=== PATIENT | male | born 1960 | race Caucasian/White ===

== ENCOUNTER 2022-05-27 16:05 | Inpatient (IN) | payer MEDICARE ==
[~2022-05-27] VITALS: Ht 180.3 cm; Wt 125.2 kg
[2022-05-27 20:30] VITALS: BP 136/83
[2022-05-27] MEDS ORDERED: MELATONIN 3 MG TABLET PO PRN (21:15)
[2022-05-27] MEDS ORDERED: ACETAMINOPHEN 325 MG TABLET PO PRN (21:15)
[2022-05-27] MEDS ORDERED: MetFORMIN HCL 500 MG TABLET PO SCH (21:30)
[2022-05-27] MEDS: SENNOSIDES 8.6 MG TABLET PO SCH (22:47)
[2022-05-27] MEDS: ATORVASTATIN CALCIUM 40 MG TABLET PO SCH (22:47)
[2022-05-27] MEDS: DOCUSATE SODIUM 250 MG CAPSULE PO SCH (22:47)
[2022-05-27] MEDS: ETHYL ALCOHOL 62% ANTISEPTIC NASAL SANITIZER 0.6 ML AMPUL NASAL SCH (22:48)
[2022-05-27 23:56] LABS: GLUCOMETER DEV NAME(LOC) 2WR.2B; GLUCOSE,POINT OF CARE 138 MG/DL (70-110)
[2022-05-28] MEDS ORDERED: INFLUENZA VIRUS VACCINE QVS 2022-23 (6MO+)/PF 60 MCG/0.5 ML SYRINGE IM. ONE (00:15)
[2022-05-28] MEDS ORDERED: PNEUMOCOCCAL VACCINE POLYVALENT 0.5 ML VIAL [PPSV23] IM. ONE (00:15)
[2022-05-28 06:56] LABS: GLUCOMETER DEV NAME(LOC) 2WR.2B; GLUCOSE,POINT OF CARE 142 MG/DL (70-110)
[2022-05-28 07:53] LABS: HEMOGLOBIN 14.3 g/dL (13.5-17.5); MEAN CORPUSCULAR HEMOGLOBIN 29.5 pg (26.0-34.0)
[2022-05-28 08:00] LABS: BASOPHILS % (AUTO) 0.6 % (0.0-2.0); HEMATOCRIT 41.7 % (41-53); LYMPHOCYTES # (AUTO) 2.3 K/uL (1.0-4.8); LYMPHOCYTES % (AUTO) 17.3 % (22.0-44.0); MEAN CORPUSCULAR HGB CONC 34.2 G/dL (31.0-37.0); MEAN CORPUSCULAR VOLUME 86 fL (80-100); MONOCYTES # (AUTO) 1.1 K/uL (0.1-1.0); MONOCYTES % (AUTO) 8.5 % (2.0-9.0); NEUTROPHILS # (AUTO) 9.4 K/uL (1.8-7.7); NEUTROPHILS % (AUTO) 71.6 % (40.0-70.0); PLATELET COUNT (AUTO) 292 K/uL (150-450); RED BLOOD CELL COUNT(AUTO) 4.83 MIL/uL (4.50-5.90); RED CELL DISTRIBUTION WIDTH 13.3 % (11.5-14.5)
[2022-05-28 08:05] LABS: ALBUMIN 3.7 g/dL (3.4-5.0); BILIRUBIN,TOTAL 0.6 mg/dL (0.1-1.0); CREATININE 1.3 mg/dL (0.60-1.30); POTASSIUM 3.6 mmol/L (3.5-5.1); TOTAL PROTEIN, SERUM 7.9 g/dL (6.4-8.2)
[2022-05-28] MEDS: ASPIRIN 81 MG CHEWABLE TABLET PO SCH (08:37)
[2022-05-28] MEDS: VALSARTAN 160 MG TABLET PO SCH (08:37)
[2022-05-28] MEDS: DOCUSATE SODIUM 250 MG CAPSULE PO SCH ×2 (08:37→20:01)
[2022-05-28] MEDS: MetFORMIN HCL 500 MG TABLET PO SCH ×2 (08:38→17:52)
[2022-05-28] MEDS: ETHYL ALCOHOL 62% ANTISEPTIC NASAL SANITIZER 0.6 ML AMPUL NASAL SCH ×2 (08:38→20:03)
[2022-05-28] MEDS: AmLODIPine BESYLATE 10 MG TABLET PO SCH (08:39)
[2022-05-28] MEDS: CLOPIDOGREL BISULFATE 75 MG TABLET PO SCH (08:39)
[2022-05-28] MEDS: HYDROCHLOROTHIAZIDE 25 MG TABLET PO SCH (08:45)
[2022-05-28] MEDS ORDERED: ENOXAPARIN SODIUM 40 MG/0.4 ML PF SYRINGE SQ SCH (09:00)
[2022-05-28 09:05] VITALS: BP 143/78
[2022-05-28 16:49] LABS: APPEARANCE,URINE CLEAR (CLEAR); BILIRUBIN,URINE NEGATIVE (NEGATIVE); GLUCOSE, URINE (UA) NEGATIVE (NEGATIVE); KETONES,URINE NEGATIVE (NEGATIVE); LEUKOCYTE ESTERASE ,URINE NEGATIVE (NEGATIVE); NITRATE,URINE NEGATIVE (NEGATIVE); OCCULT BLOOD,URINE TRACE (NEGATIVE); PROTEIN,URINE TRACE mg/dL (NEGATIVE); SPECIFIC GRAVITIY, URINE 1.022 (1.003-1.030); UROBILINOGEN,URINE <=1.0 mg/dL (<=1.0)
[2022-05-28 17:01] LABS: WBC,URINE 0-2 /HPF (0-5)
[2022-05-28 17:03] LABS: BACTERIA,URINE None Seen /HPF (None Seen); URIC ACID CRYSTALS,URINE Few /LPF (None Seen)
[2022-05-28 19:01] LABS: GLUCOMETER DEV NAME(LOC) 2WR.2B; GLUCOSE,POINT OF CARE 173 MG/DL (70-110)
[2022-05-28 19:41] VITALS: BP 136/73
[2022-05-28] MEDS: SENNOSIDES 8.6 MG TABLET PO SCH (20:02)
[2022-05-28] MEDS: ATORVASTATIN CALCIUM 40 MG TABLET PO SCH (20:02)
[2022-05-28] MEDS: ZOLPIDEM TARTRATE 5 MG TABLET PO PRN (20:02)
[2022-05-28] MEDS: HEPARIN SODIUM,PORCINE 5,000 UNITS/ML VIAL SQ SCH (20:02)
[2022-05-29] MEDS ORDERED: DOCUSATE SODIUM 283 MG/5 ML MINI-ENEMA PR PRN (03:00)
[2022-05-29 07:07] LABS: BASOPHILS % (AUTO) 0.8 % (0.0-2.0); HEMATOCRIT 42.4 % (41-53); HEMOGLOBIN 14.2 g/dL (13.5-17.5); LYMPHOCYTES # (AUTO) 2.3 K/uL (1.0-4.8); LYMPHOCYTES % (AUTO) 18.7 % (22.0-44.0); MEAN CORPUSCULAR HEMOGLOBIN 29.1 pg (26.0-34.0); MEAN CORPUSCULAR HGB CONC 33.4 G/dL (31.0-37.0); MEAN CORPUSCULAR VOLUME 87 fL (80-100); MONOCYTES # (AUTO) 0.9 K/uL (0.1-1.0); MONOCYTES % (AUTO) 7.3 % (2.0-9.0); NEUTROPHILS # (AUTO) 8.6 K/uL (1.8-7.7); NEUTROPHILS % (AUTO) 71.2 % (40.0-70.0); PLATELET COUNT (AUTO) 307 K/uL (150-450); RED BLOOD CELL COUNT(AUTO) 4.88 MIL/uL (4.50-5.90); RED CELL DISTRIBUTION WIDTH 13.1 % (11.5-14.5)
[2022-05-29 07:22] LABS: CHOL/HDL RATIO 4.1 (4.2-7.3); CREATININE 1.48 mg/dL (0.60-1.30); POTASSIUM 3.9 mmol/L (3.5-5.1)
[2022-05-29 07:23] LABS: HEMOGLOBIN A1C 7.3 % (3.8-5.6)
[2022-05-29] MEDS: HEPARIN SODIUM,PORCINE 5,000 UNITS/ML VIAL SQ SCH ×2 (08:13→20:26)
[2022-05-29] MEDS: MetFORMIN HCL 500 MG TABLET PO SCH ×2 (08:16→16:34)
[2022-05-29] MEDS: ETHYL ALCOHOL 62% ANTISEPTIC NASAL SANITIZER 0.6 ML AMPUL NASAL SCH ×2 (08:18→20:27)
[2022-05-29] MEDS: VALSARTAN 160 MG TABLET PO SCH (08:20)
[2022-05-29] MEDS: AmLODIPine BESYLATE 10 MG TABLET PO SCH (08:21)
[2022-05-29] MEDS: ASPIRIN 81 MG CHEWABLE TABLET PO SCH (08:22)
[2022-05-29] MEDS: DOCUSATE SODIUM 250 MG CAPSULE PO SCH ×2 (08:22→20:26)
[2022-05-29] MEDS: HYDROCHLOROTHIAZIDE 25 MG TABLET PO SCH (08:23)
[2022-05-29] MEDS: CLOPIDOGREL BISULFATE 75 MG TABLET PO SCH (08:23)
[2022-05-29 08:46] LABS: GLUCOMETER DEV NAME(LOC) 2WR.1C; GLUCOSE,POINT OF CARE 134 MG/DL (70-110)
[2022-05-29 11:53] VITALS: BP 118/71
[2022-05-29 17:11] LABS: APPEARANCE,URINE CLEAR (CLEAR); BILIRUBIN,URINE NEGATIVE (NEGATIVE); GLUCOSE, URINE (UA) NEGATIVE (NEGATIVE); KETONES,URINE NEGATIVE (NEGATIVE); LEUKOCYTE ESTERASE ,URINE NEGATIVE (NEGATIVE); NITRATE,URINE NEGATIVE (NEGATIVE); OCCULT BLOOD,URINE MODERATE (NEGATIVE); PROTEIN,URINE TRACE mg/dL (NEGATIVE); SPECIFIC GRAVITIY, URINE 1.021 (1.003-1.030); UROBILINOGEN,URINE <=1.0 mg/dL (<=1.0)
[2022-05-29 17:15] LABS: CREATININE,URINE RANDOM 185.1 mg/dL (30.0-125.0); PROTEIN,URINE RANDOM 39 mg/dL (0-11.9); SODIUM,URINE RANDOM 36 mmol/l (20-110); UREA NITROGEN,URINE RANDOM 1023 mg/dL (350-1000)
[2022-05-29 17:20] LABS: BACTERIA,URINE Rare /HPF (None Seen); SQUAMOUS EPITHELIAL CELL,UR Few /LPF (None Seen)
[2022-05-29 17:26] LABS: GLUCOMETER DEV NAME(LOC) 2WR.2B; GLUCOSE,POINT OF CARE 112 MG/DL (70-110)
[2022-05-29 20:00] VITALS: BP 130/79
[2022-05-29] MEDS: ZOLPIDEM TARTRATE 5 MG TABLET PO PRN (20:26)
[2022-05-29] MEDS: ATORVASTATIN CALCIUM 40 MG TABLET PO SCH (20:26)
[2022-05-29] MEDS: SENNOSIDES 8.6 MG TABLET PO SCH (20:26)
[2022-05-30 07:02] LABS: GLUCOMETER DEV NAME(LOC) 2WR.2B; GLUCOSE,POINT OF CARE 124 MG/DL (70-110)
[2022-05-30] MEDS: HEPARIN SODIUM,PORCINE 5,000 UNITS/ML VIAL SQ SCH ×2 (08:29→21:29)
[2022-05-30] MEDS: VALSARTAN 160 MG TABLET PO SCH (08:32)
[2022-05-30] MEDS: MetFORMIN HCL 500 MG TABLET PO SCH ×2 (08:33→16:45)
[2022-05-30] MEDS: DOCUSATE SODIUM 250 MG CAPSULE PO SCH ×2 (08:33→21:28)
[2022-05-30] MEDS: ETHYL ALCOHOL 62% ANTISEPTIC NASAL SANITIZER 0.6 ML AMPUL NASAL SCH ×2 (08:34→21:28)
[2022-05-30] MEDS: ASPIRIN 81 MG CHEWABLE TABLET PO SCH (08:35)
[2022-05-30] MEDS: CLOPIDOGREL BISULFATE 75 MG TABLET PO SCH (08:36)
[2022-05-30] MEDS: AmLODIPine BESYLATE 10 MG TABLET PO SCH (08:36)
[2022-05-30] MEDS: HYDROCHLOROTHIAZIDE 25 MG TABLET PO SCH (08:37)
[2022-05-30 08:38] VITALS: BP 132/92
[2022-05-30 17:11] LABS: GLUCOMETER DEV NAME(LOC) 2WR.1C; GLUCOSE,POINT OF CARE 106 MG/DL (70-110)
[2022-05-30 20:22] VITALS: BP 138/77
[2022-05-30] MEDS: SENNOSIDES 8.6 MG TABLET PO SCH (21:28)
[2022-05-30] MEDS: ZOLPIDEM TARTRATE 5 MG TABLET PO PRN (21:29)
[2022-05-30] MEDS: ATORVASTATIN CALCIUM 40 MG TABLET PO SCH (21:30)
[2022-05-31 06:36] LABS: BASOPHILS % (AUTO) 0.8 % (0.0-2.0); EOSINOPHILS % (AUTO) 1.2 % (1.0-6.0); HEMATOCRIT 41.5 % (41-53); HEMOGLOBIN 14.1 g/dL (13.5-17.5); LYMPHOCYTES # (AUTO) 2.4 K/uL (1.0-4.8); LYMPHOCYTES % (AUTO) 17.7 % (22.0-44.0); MEAN CORPUSCULAR HEMOGLOBIN 29.3 pg (26.0-34.0); MEAN CORPUSCULAR VOLUME 86 fL (80-100); MONOCYTES % (AUTO) 7.5 % (2.0-9.0); NEUTROPHILS # (AUTO) 9.8 K/uL (1.8-7.7); NEUTROPHILS % (AUTO) 72.8 % (40.0-70.0); PLATELET COUNT (AUTO) 289 K/uL (150-450); RED BLOOD CELL COUNT(AUTO) 4.82 MIL/uL (4.50-5.90); RED CELL DISTRIBUTION WIDTH 12.8 % (11.5-14.5)
[2022-05-31 06:41] LABS: GLUCOMETER DEV NAME(LOC) 2WR.2B; GLUCOSE,POINT OF CARE 104 MG/DL (70-110)
[2022-05-31 06:49] LABS: CALCIUM, TOTAL 8.9 mg/dL (8.8-10.5); CREATININE 1.35 mg/dL (0.60-1.30); POTASSIUM 3.8 mmol/L (3.5-5.1)
[2022-05-31 07:46] VITALS: BP 135/74
[2022-05-31 07:50] VITALS: BP 135/74
[2022-05-31] MEDS: MetFORMIN HCL 500 MG TABLET PO SCH ×2 (08:35→17:46)
[2022-05-31] MEDS: DOCUSATE SODIUM 250 MG CAPSULE PO SCH ×2 (08:36→21:00)
[2022-05-31] MEDS: ASPIRIN 81 MG CHEWABLE TABLET PO SCH (08:36)
[2022-05-31] MEDS: ETHYL ALCOHOL 62% ANTISEPTIC NASAL SANITIZER 0.6 ML AMPUL NASAL SCH ×2 (08:36→21:08)
[2022-05-31] MEDS: AmLODIPine BESYLATE 10 MG TABLET PO SCH (08:37)
[2022-05-31] MEDS: VALSARTAN 160 MG TABLET PO SCH (08:37)
[2022-05-31] MEDS: CLOPIDOGREL BISULFATE 75 MG TABLET PO SCH (08:38)
[2022-05-31] MEDS: HYDROCHLOROTHIAZIDE 25 MG TABLET PO SCH (08:38)
[2022-05-31] MEDS: HEPARIN SODIUM,PORCINE 5,000 UNITS/ML VIAL SQ SCH ×2 (08:39→21:07)
[2022-05-31 09:44] VITALS: BP 135/74
[2022-05-31 17:06] LABS: GLUCOMETER DEV NAME(LOC) 2WR.2B; GLUCOSE,POINT OF CARE 125 MG/DL (70-110)
[2022-05-31 20:30] VITALS: BP 131/83
[2022-05-31] MEDS: SENNOSIDES 8.6 MG TABLET PO SCH (21:00)
[2022-05-31] MEDS: ATORVASTATIN CALCIUM 40 MG TABLET PO SCH (21:07)
[2022-05-31] MEDS: ZOLPIDEM TARTRATE 5 MG TABLET PO PRN (21:07)
[2022-06-01 07:21] LABS: GLUCOMETER DEV NAME(LOC) 2WR.2B; GLUCOSE,POINT OF CARE 104 MG/DL (70-110)
[2022-06-01] MEDS: DOCUSATE SODIUM 250 MG CAPSULE PO SCH ×3 (09:00→21:00)
[2022-06-01 09:05] VITALS: BP 128/73
[2022-06-01] MEDS: MetFORMIN HCL 500 MG TABLET PO SCH ×2 (09:15→17:50)
[2022-06-01] MEDS: VALSARTAN 160 MG TABLET PO SCH (09:15)
[2022-06-01] MEDS: HYDROCHLOROTHIAZIDE 25 MG TABLET PO SCH (09:16)
[2022-06-01] MEDS: AmLODIPine BESYLATE 10 MG TABLET PO SCH (09:16)
[2022-06-01] MEDS: CLOPIDOGREL BISULFATE 75 MG TABLET PO SCH (09:16)
[2022-06-01] MEDS: ASPIRIN 81 MG CHEWABLE TABLET PO SCH (09:16)
[2022-06-01] MEDS: HEPARIN SODIUM,PORCINE 5,000 UNITS/ML VIAL SQ SCH ×2 (09:17→21:08)
[2022-06-01] MEDS: ETHYL ALCOHOL 62% ANTISEPTIC NASAL SANITIZER 0.6 ML AMPUL NASAL SCH ×2 (09:18→21:20)
[2022-06-01] MEDS ORDERED: DEXTROSE 50%-WATER 25 GM/50 ML SYRINGE IVP PRN (17:45)
[2022-06-01] MEDS: FAMOTIDINE 20 MG TABLET PO SCH (17:50)
[2022-06-01] MEDS: GABAPENTIN 100 MG CAPSULE PO SCH ×2 (17:51→21:10)
[2022-06-01 21:00] VITALS: BP 116/65
[2022-06-01] MEDS: SENNOSIDES 8.6 MG TABLET PO SCH (21:00)
[2022-06-01] MEDS: ATORVASTATIN CALCIUM 40 MG TABLET PO SCH (21:10)
[2022-06-01] MEDS: ZOLPIDEM TARTRATE 5 MG TABLET PO PRN (21:11)
[2022-06-01 23:16] LABS: GLUCOMETER DEV NAME(LOC) 2WR.1C; GLUCOSE,POINT OF CARE 118 MG/DL (70-110)
[2022-06-02] MEDS: FAMOTIDINE 20 MG TABLET PO SCH ×2 (06:16→15:57)
[2022-06-02 07:01] LABS: GLUCOMETER DEV NAME(LOC) 2WR.2B; GLUCOSE,POINT OF CARE 108 MG/DL (70-110)
[2022-06-02] MEDS: HEPARIN SODIUM,PORCINE 5,000 UNITS/ML VIAL SQ SCH ×2 (07:52→20:09)
[2022-06-02] MEDS: ETHYL ALCOHOL 62% ANTISEPTIC NASAL SANITIZER 0.6 ML AMPUL NASAL SCH ×2 (07:55→20:07)
[2022-06-02] MEDS: MetFORMIN HCL 500 MG TABLET PO SCH ×2 (07:56→15:57)
[2022-06-02] MEDS: VALSARTAN 160 MG TABLET PO SCH (07:57)
[2022-06-02] MEDS: DOCUSATE SODIUM 250 MG CAPSULE PO SCH ×2 (07:58→20:08)
[2022-06-02] MEDS: ASPIRIN 81 MG CHEWABLE TABLET PO SCH (07:59)
[2022-06-02] MEDS: GABAPENTIN 100 MG CAPSULE PO SCH ×3 (08:00→20:08)
[2022-06-02] MEDS: AmLODIPine BESYLATE 10 MG TABLET PO SCH (08:00)
[2022-06-02] MEDS: CLOPIDOGREL BISULFATE 75 MG TABLET PO SCH (08:01)
[2022-06-02] MEDS: HYDROCHLOROTHIAZIDE 25 MG TABLET PO SCH (08:02)
[2022-06-02 09:04] VITALS: BP 139/83
[2022-06-02 18:41] LABS: GLUCOMETER DEV NAME(LOC) 2WR.1C; GLUCOSE,POINT OF CARE 107 MG/DL (70-110)
[2022-06-02] MEDS: ATORVASTATIN CALCIUM 40 MG TABLET PO SCH (20:08)
[2022-06-02] MEDS: ZOLPIDEM TARTRATE 5 MG TABLET PO PRN (20:09)
[2022-06-02 21:00] VITALS: BP 137/75
[2022-06-03] MEDS ORDERED: VALS160T2 PO (02:04)
[2022-06-03] MEDS ORDERED: FLUO10CA24 PO (02:04)
[2022-06-03] MEDS ORDERED: AMLO-258 PO (02:04)
[2022-06-03] MEDS ORDERED: CLON0.1T2 PO (02:04)
[2022-06-03] MEDS ORDERED: HYDR25TA2 PO (02:04)
[2022-06-03] MEDS ORDERED: POTA-206 PO (02:04)
[2022-06-03] MEDS ORDERED: SEMA0.25 SQ (02:04)
[2022-06-03] MEDS: PANTOPRAZOLE SODIUM 40 MG DR TABLET PO SCH ×2 (06:12→16:08)
[2022-06-03 07:11] LABS: GLUCOMETER DEV NAME(LOC) 2WR.2B; GLUCOSE,POINT OF CARE 81 MG/DL (70-110)
[2022-06-03 07:42] LABS: CALCIUM, TOTAL 8.4 mg/dL (8.8-10.5); CREATININE 1.68 mg/dL (0.60-1.30); POTASSIUM 3.8 mmol/L (3.5-5.1)
[2022-06-03] MEDS: HEPARIN SODIUM,PORCINE 5,000 UNITS/ML VIAL SQ SCH ×2 (08:19→21:25)
[2022-06-03] MEDS: VALSARTAN 160 MG TABLET PO SCH (08:21)
[2022-06-03] MEDS: MetFORMIN HCL 500 MG TABLET PO SCH ×2 (08:22→16:41)
[2022-06-03] MEDS: HYDROCHLOROTHIAZIDE 25 MG TABLET PO SCH (08:22)
[2022-06-03] MEDS: ASPIRIN 81 MG CHEWABLE TABLET PO SCH (08:23)
[2022-06-03] MEDS: AmLODIPine BESYLATE 10 MG TABLET PO SCH (08:23)
[2022-06-03] MEDS: ETHYL ALCOHOL 62% ANTISEPTIC NASAL SANITIZER 0.6 ML AMPUL NASAL SCH ×2 (08:24→21:26)
[2022-06-03] MEDS: GABAPENTIN 100 MG CAPSULE PO SCH ×3 (08:25→21:25)
[2022-06-03] MEDS: CLOPIDOGREL BISULFATE 75 MG TABLET PO SCH (08:25)
[2022-06-03] MEDS: DOCUSATE SODIUM 250 MG CAPSULE PO SCH ×2 (08:27→21:00)
[2022-06-03 09:05] VITALS: BP 101/65
[2022-06-03 15:30] VITALS: BP 116/74
[2022-06-03 17:01] LABS: GLUCOMETER DEV NAME(LOC) 2WR.2B; GLUCOSE,POINT OF CARE 104 MG/DL (70-110)
[2022-06-03 21:00] VITALS: BP 118/62
[2022-06-03] MEDS: ATORVASTATIN CALCIUM 40 MG TABLET PO SCH (21:25)
[2022-06-03] MEDS: ZOLPIDEM TARTRATE 5 MG TABLET PO PRN (21:26)
[2022-06-04] MEDS: PANTOPRAZOLE SODIUM 40 MG DR TABLET PO SCH ×2 (06:09→16:54)
[2022-06-04 06:46] LABS: GLUCOMETER DEV NAME(LOC) 2WR.2B; GLUCOSE,POINT OF CARE 92 MG/DL (70-110)
[2022-06-04 08:00] VITALS: BP 133/85
[2022-06-04] MEDS: AmLODIPine BESYLATE 10 MG TABLET PO SCH (08:05)
[2022-06-04] MEDS: HYDROCHLOROTHIAZIDE 25 MG TABLET PO SCH (08:05)
[2022-06-04] MEDS: CLOPIDOGREL BISULFATE 75 MG TABLET PO SCH (08:06)
[2022-06-04] MEDS: GABAPENTIN 100 MG CAPSULE PO SCH ×3 (08:06→20:32)
[2022-06-04] MEDS: ETHYL ALCOHOL 62% ANTISEPTIC NASAL SANITIZER 0.6 ML AMPUL NASAL SCH ×2 (08:06→20:31)
[2022-06-04] MEDS: MetFORMIN HCL 500 MG TABLET PO SCH ×2 (08:06→16:53)
[2022-06-04] MEDS: ASPIRIN 81 MG CHEWABLE TABLET PO SCH (08:07)
[2022-06-04] MEDS: VALSARTAN 160 MG TABLET PO SCH (08:07)
[2022-06-04] MEDS: HEPARIN SODIUM,PORCINE 5,000 UNITS/ML VIAL SQ SCH ×2 (08:08→20:31)
[2022-06-04] MEDS: DOCUSATE SODIUM 250 MG CAPSULE PO SCH ×2 (08:40→20:32)
[2022-06-04 17:21] LABS: GLUCOMETER DEV NAME(LOC) 2WR.1C; GLUCOSE,POINT OF CARE 113 MG/DL (70-110)
[2022-06-04 20:01] VITALS: BP 102/65
[2022-06-04] MEDS: ATORVASTATIN CALCIUM 40 MG TABLET PO SCH (20:31)
[2022-06-04] MEDS: ZOLPIDEM TARTRATE 5 MG TABLET PO PRN (20:31)
[2022-06-05] MEDS: PANTOPRAZOLE SODIUM 40 MG DR TABLET PO SCH ×2 (06:26→16:01)
[2022-06-05 06:56] LABS: GLUCOMETER DEV NAME(LOC) 2WR.2B; GLUCOSE,POINT OF CARE 89 MG/DL (70-110)
[2022-06-05 07:46] LABS: CALCIUM, TOTAL 8.5 mg/dL (8.8-10.5); CREATININE 1.65 mg/dL (0.60-1.30); POTASSIUM 3.7 mmol/L (3.5-5.1)
[2022-06-05 08:00] VITALS: BP 125/70
[2022-06-05] MEDS: ASPIRIN 81 MG CHEWABLE TABLET PO SCH (08:10)
[2022-06-05] MEDS: CLOPIDOGREL BISULFATE 75 MG TABLET PO SCH (08:10)
[2022-06-05] MEDS: MetFORMIN HCL 500 MG TABLET PO SCH (08:10)
[2022-06-05] MEDS: HYDROCHLOROTHIAZIDE 25 MG TABLET PO SCH (08:11)
[2022-06-05] MEDS: AmLODIPine BESYLATE 10 MG TABLET PO SCH (08:12)
[2022-06-05] MEDS: GABAPENTIN 100 MG CAPSULE PO SCH ×3 (08:12→20:49)
[2022-06-05] MEDS: ETHYL ALCOHOL 62% ANTISEPTIC NASAL SANITIZER 0.6 ML AMPUL NASAL SCH ×2 (08:12→20:50)
[2022-06-05] MEDS: HEPARIN SODIUM,PORCINE 5,000 UNITS/ML VIAL SQ SCH ×2 (08:12→20:50)
[2022-06-05] MEDS: VALSARTAN 160 MG TABLET PO SCH (08:12)
[2022-06-05] MEDS: DOCUSATE SODIUM 250 MG CAPSULE PO SCH ×2 (08:22→20:50)
[2022-06-05] MEDS ORDERED: ZOLP10TA8 PO (13:44)
[2022-06-05] MEDS ORDERED: HYDR-4061 PO (13:44)
[2022-06-05] MEDS ORDERED: LATA2.5D14 OU (13:44)
[2022-06-05] MEDS ORDERED: HYDR25TA84 PO (13:44)
[2022-06-05] MEDS ORDERED: GLIM2 PO (13:44)
[2022-06-05] MEDS ORDERED: METF-446 PO (13:44)
[2022-06-05 17:47] LABS: GLUCOMETER DEV NAME(LOC) 2WR.2B; GLUCOSE,POINT OF CARE 120 MG/DL (70-110)
[2022-06-05 20:01] VITALS: BP 120/56
[2022-06-05] MEDS: ZOLPIDEM TARTRATE 5 MG TABLET PO PRN (20:49)
[2022-06-05] MEDS: ATORVASTATIN CALCIUM 40 MG TABLET PO SCH (20:49)
[2022-06-06] MEDS: PANTOPRAZOLE SODIUM 40 MG DR TABLET PO SCH ×2 (06:23→15:32)
[2022-06-06 07:01] LABS: GLUCOMETER DEV NAME(LOC) 2WR.1C; GLUCOSE,POINT OF CARE 110 MG/DL (70-110)
[2022-06-06] MEDS: AmLODIPine BESYLATE 10 MG TABLET PO SCH (07:47)
[2022-06-06] MEDS: VALSARTAN 160 MG TABLET PO SCH (07:47)
[2022-06-06] MEDS: ETHYL ALCOHOL 62% ANTISEPTIC NASAL SANITIZER 0.6 ML AMPUL NASAL SCH ×2 (07:47→20:07)
[2022-06-06] MEDS: CLOPIDOGREL BISULFATE 75 MG TABLET PO SCH (07:47)
[2022-06-06] MEDS: GABAPENTIN 100 MG CAPSULE PO SCH ×3 (07:47→20:08)
[2022-06-06] MEDS: ASPIRIN 81 MG CHEWABLE TABLET PO SCH (07:48)
[2022-06-06] MEDS: MULTIVITAMINS WITH MINERALS, THERAPEUTIC TABLET PO SCH (07:48)
[2022-06-06] MEDS: HEPARIN SODIUM,PORCINE 5,000 UNITS/ML VIAL SQ SCH ×2 (07:49→20:09)
[2022-06-06] MEDS: DOCUSATE SODIUM 250 MG CAPSULE PO SCH ×2 (07:51→20:08)
[2022-06-06 08:03] LABS: CALCIUM, TOTAL 8.8 mg/dL (8.8-10.5); CREATININE 1.52 mg/dL (0.60-1.30); MAGNESIUM 2.3 mg/dL (1.80-2.40); PHOSPHORUS 4.3 mg/dL (2.5-4.9); POTASSIUM 3.9 mmol/L (3.5-5.1)
[2022-06-06 09:08] VITALS: BP 134/78
[2022-06-06 17:01] LABS: GLUCOMETER DEV NAME(LOC) 2WR.1C; GLUCOSE,POINT OF CARE 134 MG/DL (70-110)
[2022-06-06] MEDS: ATORVASTATIN CALCIUM 40 MG TABLET PO SCH (20:08)
[2022-06-06] MEDS: ZOLPIDEM TARTRATE 5 MG TABLET PO PRN (20:08)
[2022-06-06 21:00] VITALS: BP 103/61
[2022-06-07] MEDS ORDERED: ATOR40TA28 PO (03:01)
[2022-06-07] MEDS ORDERED: MULT-248 PO (03:01)
[2022-06-07] MEDS ORDERED: GABA-1216 PO (03:01)
[2022-06-07] MEDS ORDERED: CLOP75TA60 PO (03:01)
[2022-06-07] MEDS ORDERED: ASPI-1450 PO (03:01)
[2022-06-07] MEDS ORDERED: PANT-31 PO (03:01)
[2022-06-07] MEDS ORDERED: DOCU-350 PO (03:01)
[2022-06-07] MEDS: PANTOPRAZOLE SODIUM 40 MG DR TABLET PO SCH ×2 (06:22→16:46)
[2022-06-07 06:58] LABS: BASOPHILS % (AUTO) 0.8 % (0.0-2.0); EOSINOPHILS % (AUTO) 2.3 % (1.0-6.0); HEMATOCRIT 41.6 % (41-53); HEMOGLOBIN 13.7 g/dL (13.5-17.5); LYMPHOCYTES # (AUTO) 2.5 K/uL (1.0-4.8); LYMPHOCYTES % (AUTO) 23.1 % (22.0-44.0); MEAN CORPUSCULAR HEMOGLOBIN 28.7 pg (26.0-34.0); MEAN CORPUSCULAR VOLUME 87 fL (80-100); MONOCYTES # (AUTO) 0.6 K/uL (0.1-1.0); MONOCYTES % (AUTO) 5.9 % (2.0-9.0); NEUTROPHILS # (AUTO) 7.4 K/uL (1.8-7.7); NEUTROPHILS % (AUTO) 67.9 % (40.0-70.0); PLATELET COUNT (AUTO) 276 K/uL (150-450); RED BLOOD CELL COUNT(AUTO) 4.79 MIL/uL (4.50-5.90); RED CELL DISTRIBUTION WIDTH 13.2 % (11.5-14.5)
[2022-06-07 07:03] LABS: CALCIUM, TOTAL 8.9 mg/dL (8.8-10.5); CREATININE 1.47 mg/dL (0.60-1.30)
[2022-06-07 07:06] LABS: GLUCOMETER DEV NAME(LOC) 2WR.2B; GLUCOSE,POINT OF CARE 105 MG/DL (70-110)
[2022-06-07] MEDS: ETHYL ALCOHOL 62% ANTISEPTIC NASAL SANITIZER 0.6 ML AMPUL NASAL SCH ×2 (08:07→20:26)
[2022-06-07] MEDS: ASPIRIN 81 MG CHEWABLE TABLET PO SCH (08:08)
[2022-06-07] MEDS: VALSARTAN 160 MG TABLET PO SCH (08:09)
[2022-06-07] MEDS: MULTIVITAMINS WITH MINERALS, THERAPEUTIC TABLET PO SCH (08:10)
[2022-06-07] MEDS: CLOPIDOGREL BISULFATE 75 MG TABLET PO SCH (08:11)
[2022-06-07] MEDS: DOCUSATE SODIUM 250 MG CAPSULE PO SCH ×2 (08:12→20:26)
[2022-06-07] MEDS: GABAPENTIN 100 MG CAPSULE PO SCH ×3 (08:13→20:27)
[2022-06-07] MEDS: AmLODIPine BESYLATE 10 MG TABLET PO SCH (08:17)
[2022-06-07] MEDS: HEPARIN SODIUM,PORCINE 5,000 UNITS/ML VIAL SQ SCH ×2 (08:19→20:27)
[2022-06-07 09:05] VITALS: BP 132/79
[2022-06-07] MEDS: INSULIN LISPRO 100 UNITS/ML SQ PRN (16:58)
[2022-06-07 17:21] LABS: GLUCOMETER DEV NAME(LOC) 2WR.2B; GLUCOSE,POINT OF CARE 155 MG/DL (70-110)
[2022-06-07] MEDS: ZOLPIDEM TARTRATE 5 MG TABLET PO PRN (20:27)
[2022-06-07] MEDS: ATORVASTATIN CALCIUM 40 MG TABLET PO SCH (20:27)
[2022-06-07 21:00] VITALS: BP 105/52
[2022-06-08] MEDS: PANTOPRAZOLE SODIUM 40 MG DR TABLET PO SCH ×2 (06:27→16:22)
[2022-06-08 07:06] LABS: CALCIUM, TOTAL 8.5 mg/dL (8.8-10.5); CREATININE 1.45 mg/dL (0.60-1.30); POTASSIUM 4.3 mmol/L (3.5-5.1)
[2022-06-08 07:07] LABS: GLUCOMETER DEV NAME(LOC) 2WR.1C; GLUCOSE,POINT OF CARE 105 MG/DL (70-110)
[2022-06-08] MEDS: HEPARIN SODIUM,PORCINE 5,000 UNITS/ML VIAL SQ SCH ×2 (07:42→20:16)
[2022-06-08] MEDS: ASPIRIN 81 MG CHEWABLE TABLET PO SCH (07:44)
[2022-06-08] MEDS: ETHYL ALCOHOL 62% ANTISEPTIC NASAL SANITIZER 0.6 ML AMPUL NASAL SCH ×2 (07:48→20:16)
[2022-06-08] MEDS: DOCUSATE SODIUM 250 MG CAPSULE PO SCH ×2 (07:50→20:16)
[2022-06-08] MEDS: MULTIVITAMINS WITH MINERALS, THERAPEUTIC TABLET PO SCH (07:51)
[2022-06-08] MEDS: VALSARTAN 160 MG TABLET PO SCH (07:54)
[2022-06-08] MEDS: CLOPIDOGREL BISULFATE 75 MG TABLET PO SCH (07:55)
[2022-06-08] MEDS: GABAPENTIN 100 MG CAPSULE PO SCH ×3 (07:56→20:16)
[2022-06-08] MEDS: AmLODIPine BESYLATE 5 MG TABLET PO SCH (07:57)
[2022-06-08 10:05] VITALS: BP 129/70
[2022-06-08] MEDS: ATORVASTATIN CALCIUM 40 MG TABLET PO SCH (20:16)
[2022-06-08] MEDS: ZOLPIDEM TARTRATE 10 MG TABLET PO PRN (20:17)
[2022-06-08 21:00] VITALS: BP 133/69
[2022-06-09 05:21] LABS: GLUCOMETER DEV NAME(LOC) 2WR.1C; GLUCOSE,POINT OF CARE 104 MG/DL (70-110)
[2022-06-09] MEDS: PANTOPRAZOLE SODIUM 40 MG DR TABLET PO SCH ×2 (06:08→16:27)
[2022-06-09 07:06] LABS: GLUCOMETER DEV NAME(LOC) 2WR.2B; GLUCOSE,POINT OF CARE 103 MG/DL (70-110)
[2022-06-09] MEDS: ASPIRIN 81 MG CHEWABLE TABLET PO SCH (08:05)
[2022-06-09] MEDS: MULTIVITAMINS WITH MINERALS, THERAPEUTIC TABLET PO SCH (08:05)
[2022-06-09] MEDS: ETHYL ALCOHOL 62% ANTISEPTIC NASAL SANITIZER 0.6 ML AMPUL NASAL SCH ×2 (08:06→20:38)
[2022-06-09] MEDS: DOCUSATE SODIUM 250 MG CAPSULE PO SCH ×2 (08:06→20:37)
[2022-06-09] MEDS: AmLODIPine BESYLATE 5 MG TABLET PO SCH (08:07)
[2022-06-09] MEDS: VALSARTAN 160 MG TABLET PO SCH (08:07)
[2022-06-09] MEDS: GABAPENTIN 100 MG CAPSULE PO SCH ×3 (08:07→20:38)
[2022-06-09] MEDS: HEPARIN SODIUM,PORCINE 5,000 UNITS/ML VIAL SQ SCH ×2 (08:09→20:37)
[2022-06-09] MEDS: CLOPIDOGREL BISULFATE 75 MG TABLET PO SCH (08:26)
[2022-06-09 09:30] VITALS: BP 130/67
[2022-06-09 18:21] LABS: GLUCOMETER DEV NAME(LOC) 2WR.2B; GLUCOSE,POINT OF CARE 123 MG/DL (70-110)
[2022-06-09 20:12] VITALS: BP 116/75
[2022-06-09] MEDS: ATORVASTATIN CALCIUM 40 MG TABLET PO SCH (20:37)
[2022-06-09] MEDS: ZOLPIDEM TARTRATE 10 MG TABLET PO PRN (20:38)
[2022-06-10 06:51] LABS: GLUCOMETER DEV NAME(LOC) 2WR.2B; GLUCOSE,POINT OF CARE 106 MG/DL (70-110)
[2022-06-10] MEDS: PANTOPRAZOLE SODIUM 40 MG DR TABLET PO SCH ×2 (06:55→15:46)
[2022-06-10] MEDS: MULTIVITAMINS WITH MINERALS, THERAPEUTIC TABLET PO SCH (08:03)
[2022-06-10] MEDS: ASPIRIN 81 MG CHEWABLE TABLET PO SCH (08:03)
[2022-06-10] MEDS: AmLODIPine BESYLATE 5 MG TABLET PO SCH (08:03)
[2022-06-10] MEDS: GABAPENTIN 100 MG CAPSULE PO SCH ×3 (08:03→21:24)
[2022-06-10] MEDS: DOCUSATE SODIUM 250 MG CAPSULE PO SCH ×2 (08:03→21:24)
[2022-06-10] MEDS: CLOPIDOGREL BISULFATE 75 MG TABLET PO SCH (08:03)
[2022-06-10] MEDS: VALSARTAN 160 MG TABLET PO SCH (08:03)
[2022-06-10] MEDS: HEPARIN SODIUM,PORCINE 5,000 UNITS/ML VIAL SQ SCH ×2 (08:04→21:27)
[2022-06-10] MEDS: ETHYL ALCOHOL 62% ANTISEPTIC NASAL SANITIZER 0.6 ML AMPUL NASAL SCH ×2 (08:04→21:27)
[2022-06-10 09:30] VITALS: BP 137/77
[2022-06-10 17:21] LABS: GLUCOMETER DEV NAME(LOC) 2WR.1C; GLUCOSE,POINT OF CARE 160 MG/DL (70-110)
[2022-06-10] MEDS: INSULIN LISPRO 100 UNITS/ML SQ PRN (17:30)
[2022-06-10 20:12] VITALS: BP 129/67
[2022-06-10] MEDS ORDERED: TraZODone HCL 100 MG TABLET PO SCH (21:00)
[2022-06-10] MEDS: ATORVASTATIN CALCIUM 40 MG TABLET PO SCH (21:24)
[2022-06-11] MEDS: PANTOPRAZOLE SODIUM 40 MG DR TABLET PO SCH ×2 (06:31→16:03)
[2022-06-11 06:56] LABS: GLUCOMETER DEV NAME(LOC) 2WR.2B; GLUCOSE,POINT OF CARE 109 MG/DL (70-110)
[2022-06-11 08:15] LABS: CALCIUM, TOTAL 8.5 mg/dL (8.8-10.5); CREATININE 1.34 mg/dL (0.60-1.30); MAGNESIUM 2.1 mg/dL (1.80-2.40); PHOSPHORUS 3.9 mg/dL (2.5-4.9); POTASSIUM 4.3 mmol/L (3.5-5.1)
[2022-06-11] MEDS: ETHYL ALCOHOL 62% ANTISEPTIC NASAL SANITIZER 0.6 ML AMPUL NASAL SCH ×2 (09:00→21:52)
[2022-06-11 09:05] VITALS: BP 151/76
[2022-06-11] MEDS: CLOPIDOGREL BISULFATE 75 MG TABLET PO SCH (10:02)
[2022-06-11] MEDS: ASPIRIN 81 MG CHEWABLE TABLET PO SCH (10:03)
[2022-06-11] MEDS: HEPARIN SODIUM,PORCINE 5,000 UNITS/ML VIAL SQ SCH ×2 (10:03→21:52)
[2022-06-11] MEDS: MULTIVITAMINS WITH MINERALS, THERAPEUTIC TABLET PO SCH (10:03)
[2022-06-11] MEDS: VALSARTAN 160 MG TABLET PO SCH (10:03)
[2022-06-11] MEDS: AmLODIPine BESYLATE 5 MG TABLET PO SCH (10:03)
[2022-06-11] MEDS: GABAPENTIN 100 MG CAPSULE PO SCH ×3 (10:03→21:53)
[2022-06-11] MEDS: DOCUSATE SODIUM 250 MG CAPSULE PO SCH ×2 (10:04→21:52)
[2022-06-11 17:57] LABS: GLUCOMETER DEV NAME(LOC) 2WR.2B; GLUCOSE,POINT OF CARE 109 MG/DL (70-110)
[2022-06-11 21:00] VITALS: BP 126/64
[2022-06-11] MEDS: ATORVASTATIN CALCIUM 40 MG TABLET PO SCH (21:53)
[2022-06-11] MEDS: SENNOSIDES 8.6 MG TABLET PO PRN (21:54)
[2022-06-11] MEDS: MELATONIN 3 MG TABLET PO PRN (21:54)
[2022-06-11] MEDS: LACTULOSE 20 GM/30 ML SOLUTION UDCUP PO PRN (21:54)
[2022-06-12] MEDS: PANTOPRAZOLE SODIUM 40 MG DR TABLET PO SCH ×2 (06:32→17:12)
[2022-06-12 07:43] LABS: GLUCOMETER DEV NAME(LOC) 2WR.2B; GLUCOSE,POINT OF CARE 89 MG/DL (70-110)
[2022-06-12] MEDS: ETHYL ALCOHOL 62% ANTISEPTIC NASAL SANITIZER 0.6 ML AMPUL NASAL SCH ×2 (08:34→20:50)
[2022-06-12] MEDS: MULTIVITAMINS WITH MINERALS, THERAPEUTIC TABLET PO SCH (08:34)
[2022-06-12] MEDS: GABAPENTIN 100 MG CAPSULE PO SCH ×3 (08:34→20:50)
[2022-06-12] MEDS: CLOPIDOGREL BISULFATE 75 MG TABLET PO SCH (08:34)
[2022-06-12] MEDS: DOCUSATE SODIUM 250 MG CAPSULE PO SCH ×2 (08:34→20:50)
[2022-06-12] MEDS: VALSARTAN 160 MG TABLET PO SCH (08:34)
[2022-06-12] MEDS: HEPARIN SODIUM,PORCINE 5,000 UNITS/ML VIAL SQ SCH ×2 (08:36→20:49)
[2022-06-12] MEDS: AmLODIPine BESYLATE 5 MG TABLET PO SCH (08:36)
[2022-06-12] MEDS: ASPIRIN 81 MG CHEWABLE TABLET PO SCH (08:36)
[2022-06-12 10:44] VITALS: BP 134/72
[2022-06-12] MEDS: LACTULOSE 20 GM/30 ML SOLUTION UDCUP PO PRN (13:28)
[2022-06-12 17:52] LABS: GLUCOMETER DEV NAME(LOC) 2WR.1C; GLUCOSE,POINT OF CARE 125 MG/DL (70-110)
[2022-06-12 20:00] VITALS: BP 124/65
[2022-06-12] MEDS: SENNOSIDES 8.6 MG TABLET PO PRN (20:49)
[2022-06-12] MEDS: ATORVASTATIN CALCIUM 40 MG TABLET PO SCH (20:50)
[2022-06-12] MEDS: MELATONIN 3 MG TABLET PO PRN (20:50)
[2022-06-13] MEDS: PANTOPRAZOLE SODIUM 40 MG DR TABLET PO SCH ×2 (06:47→16:36)
[2022-06-13 07:13] LABS: GLUCOMETER DEV NAME(LOC) 2WR.2B; GLUCOSE,POINT OF CARE 86 MG/DL (70-110)
[2022-06-13 08:32] VITALS: BP 134/73
[2022-06-13] MEDS: HEPARIN SODIUM,PORCINE 5,000 UNITS/ML VIAL SQ SCH ×2 (08:48→21:22)
[2022-06-13] MEDS: ETHYL ALCOHOL 62% ANTISEPTIC NASAL SANITIZER 0.6 ML AMPUL NASAL SCH ×2 (08:50→21:21)
[2022-06-13] MEDS: ASPIRIN 81 MG CHEWABLE TABLET PO SCH (08:52)
[2022-06-13] MEDS: DOCUSATE SODIUM 250 MG CAPSULE PO SCH ×2 (08:57→21:21)
[2022-06-13] MEDS: GABAPENTIN 100 MG CAPSULE PO SCH ×3 (08:57→21:21)
[2022-06-13] MEDS: VALSARTAN 160 MG TABLET PO SCH (08:57)
[2022-06-13] MEDS: MULTIVITAMINS WITH MINERALS, THERAPEUTIC TABLET PO SCH (08:58)
[2022-06-13] MEDS: AmLODIPine BESYLATE 5 MG TABLET PO SCH (08:59)
[2022-06-13] MEDS: CLOPIDOGREL BISULFATE 75 MG TABLET PO SCH (09:01)
[2022-06-13 16:57] LABS: GLUCOMETER DEV NAME(LOC) 2WR.2B; GLUCOSE,POINT OF CARE 113 MG/DL (70-110)
[2022-06-13 21:00] VITALS: BP 129/56
[2022-06-13] MEDS: ATORVASTATIN CALCIUM 40 MG TABLET PO SCH (21:22)
[2022-06-13] MEDS: TraZODone HCL 50 MG TABLET PO PRN (21:22)
[2022-06-14] MEDS: PANTOPRAZOLE SODIUM 40 MG DR TABLET PO SCH ×2 (06:19→16:33)
[2022-06-14 07:38] LABS: GLUCOMETER DEV NAME(LOC) 2WR.2B; GLUCOSE,POINT OF CARE 94 MG/DL (70-110)
[2022-06-14 08:00] VITALS: BP 134/73
[2022-06-14] MEDS: ASPIRIN 81 MG CHEWABLE TABLET PO SCH (08:33)
[2022-06-14] MEDS: ETHYL ALCOHOL 62% ANTISEPTIC NASAL SANITIZER 0.6 ML AMPUL NASAL SCH ×2 (08:33→21:44)
[2022-06-14] MEDS: GABAPENTIN 100 MG CAPSULE PO SCH ×3 (08:33→21:44)
[2022-06-14] MEDS: CLOPIDOGREL BISULFATE 75 MG TABLET PO SCH (08:33)
[2022-06-14] MEDS: DOCUSATE SODIUM 250 MG CAPSULE PO SCH ×2 (08:33→21:44)
[2022-06-14] MEDS: MULTIVITAMINS WITH MINERALS, THERAPEUTIC TABLET PO SCH (08:33)
[2022-06-14] MEDS: VALSARTAN 160 MG TABLET PO SCH (08:34)
[2022-06-14] MEDS: AmLODIPine BESYLATE 5 MG TABLET PO SCH (08:34)
[2022-06-14] MEDS: HEPARIN SODIUM,PORCINE 5,000 UNITS/ML VIAL SQ SCH ×2 (08:34→21:44)
[2022-06-14 17:11] LABS: GLUCOMETER DEV NAME(LOC) 2WR.2B; GLUCOSE,POINT OF CARE 106 MG/DL (70-110)
[2022-06-14 20:12] VITALS: BP 149/70
[2022-06-14] MEDS: ATORVASTATIN CALCIUM 40 MG TABLET PO SCH (21:44)
[2022-06-14] MEDS: TraZODone HCL 50 MG TABLET PO PRN (21:45)
[2022-06-15] MEDS: PANTOPRAZOLE SODIUM 40 MG DR TABLET PO SCH ×2 (06:42→16:29)
[2022-06-15 06:56] LABS: GLUCOMETER DEV NAME(LOC) 2WR.1C; GLUCOSE,POINT OF CARE 90 MG/DL (70-110)
[2022-06-15 08:00] VITALS: BP 132/67
[2022-06-15] MEDS: HEPARIN SODIUM,PORCINE 5,000 UNITS/ML VIAL SQ SCH ×2 (08:01→20:29)
[2022-06-15] MEDS: ASPIRIN 81 MG CHEWABLE TABLET PO SCH (08:01)
[2022-06-15] MEDS: MULTIVITAMINS WITH MINERALS, THERAPEUTIC TABLET PO SCH (08:01)
[2022-06-15] MEDS: AmLODIPine BESYLATE 5 MG TABLET PO SCH (08:02)
[2022-06-15] MEDS: CLOPIDOGREL BISULFATE 75 MG TABLET PO SCH (08:02)
[2022-06-15] MEDS: ETHYL ALCOHOL 62% ANTISEPTIC NASAL SANITIZER 0.6 ML AMPUL NASAL SCH ×2 (08:02→20:29)
[2022-06-15] MEDS: DOCUSATE SODIUM 250 MG CAPSULE PO SCH ×2 (08:02→20:29)
[2022-06-15] MEDS: GABAPENTIN 100 MG CAPSULE PO SCH ×3 (08:02→20:29)
[2022-06-15] MEDS: VALSARTAN 160 MG TABLET PO SCH (08:02)
[2022-06-15 17:11] LABS: GLUCOMETER DEV NAME(LOC) 2WR.2B; GLUCOSE,POINT OF CARE 125 MG/DL (70-110)
[2022-06-15] MEDS: ATORVASTATIN CALCIUM 40 MG TABLET PO SCH (20:29)
[2022-06-15] MEDS: TraZODone HCL 50 MG TABLET PO PRN (20:29)
[2022-06-15 21:00] VITALS: BP 128/57
[2022-06-16] MEDS: PANTOPRAZOLE SODIUM 40 MG DR TABLET PO SCH ×2 (06:51→16:36)
[2022-06-16 07:17] LABS: GLUCOMETER DEV NAME(LOC) 2WR.2B; GLUCOSE,POINT OF CARE 101 MG/DL (70-110)
[2022-06-16 08:31] VITALS: BP 130/55
[2022-06-16] MEDS: ASPIRIN 81 MG CHEWABLE TABLET PO SCH (09:24)
[2022-06-16] MEDS: ETHYL ALCOHOL 62% ANTISEPTIC NASAL SANITIZER 0.6 ML AMPUL NASAL SCH ×2 (09:24→20:54)
[2022-06-16] MEDS: GABAPENTIN 100 MG CAPSULE PO SCH ×3 (09:25→20:54)
[2022-06-16] MEDS: AmLODIPine BESYLATE 5 MG TABLET PO SCH (09:25)
[2022-06-16] MEDS: VALSARTAN 160 MG TABLET PO SCH (09:25)
[2022-06-16] MEDS: DOCUSATE SODIUM 250 MG CAPSULE PO SCH ×2 (09:25→20:55)
[2022-06-16] MEDS: HEPARIN SODIUM,PORCINE 5,000 UNITS/ML VIAL SQ SCH ×2 (09:26→20:54)
[2022-06-16] MEDS: MULTIVITAMINS WITH MINERALS, THERAPEUTIC TABLET PO SCH (09:26)
[2022-06-16] MEDS: CLOPIDOGREL BISULFATE 75 MG TABLET PO SCH (09:26)
[2022-06-16 17:11] LABS: GLUCOMETER DEV NAME(LOC) 2WR.1C; GLUCOSE,POINT OF CARE 143 MG/DL (70-110)
[2022-06-16] MEDS: INSULIN LISPRO 100 UNITS/ML SQ PRN (17:41)
[2022-06-16 20:10] VITALS: BP 125/69
[2022-06-16] MEDS: TraZODone HCL 50 MG TABLET PO PRN (20:54)
[2022-06-16] MEDS: ATORVASTATIN CALCIUM 40 MG TABLET PO SCH (20:54)
[2022-06-17] MEDS: PANTOPRAZOLE SODIUM 40 MG DR TABLET PO SCH ×2 (06:25→16:54)
[2022-06-17 06:56] LABS: GLUCOMETER DEV NAME(LOC) 2WR.1C; GLUCOSE,POINT OF CARE 100 MG/DL (70-110)
[2022-06-17] MEDS: ETHYL ALCOHOL 62% ANTISEPTIC NASAL SANITIZER 0.6 ML AMPUL NASAL SCH ×2 (08:26→20:34)
[2022-06-17] MEDS: HEPARIN SODIUM,PORCINE 5,000 UNITS/ML VIAL SQ SCH ×2 (08:27→20:35)
[2022-06-17] MEDS: VALSARTAN 160 MG TABLET PO SCH (08:27)
[2022-06-17] MEDS: AmLODIPine BESYLATE 5 MG TABLET PO SCH (08:27)
[2022-06-17] MEDS: MULTIVITAMINS WITH MINERALS, THERAPEUTIC TABLET PO SCH (08:28)
[2022-06-17] MEDS: CLOPIDOGREL BISULFATE 75 MG TABLET PO SCH (08:28)
[2022-06-17] MEDS: ASPIRIN 81 MG CHEWABLE TABLET PO SCH (08:28)
[2022-06-17] MEDS: GABAPENTIN 100 MG CAPSULE PO SCH ×3 (08:28→20:34)
[2022-06-17] MEDS: DOCUSATE SODIUM 250 MG CAPSULE PO SCH ×2 (08:28→20:35)
[2022-06-17 08:43] VITALS: BP 126/73
[2022-06-17 09:05] VITALS: BP 126/73
[2022-06-17 17:25] LABS: GLUCOMETER DEV NAME(LOC) 2WR.2B; GLUCOSE,POINT OF CARE 121 MG/DL (70-110)
[2022-06-17 20:30] VITALS: BP 139/64
[2022-06-17] MEDS: ATORVASTATIN CALCIUM 40 MG TABLET PO SCH (20:34)
[2022-06-17] MEDS: LACTULOSE 20 GM/30 ML SOLUTION UDCUP PO PRN (20:35)
[2022-06-17] MEDS: TraZODone HCL 50 MG TABLET PO PRN (21:58)
[2022-06-18] MEDS: PANTOPRAZOLE SODIUM 40 MG DR TABLET PO SCH ×2 (06:36→17:06)
[2022-06-18 07:16] LABS: GLUCOMETER DEV NAME(LOC) 2WR.2B; GLUCOSE,POINT OF CARE 100 MG/DL (70-110)
[2022-06-18 08:55] VITALS: BP 129/69
[2022-06-18] MEDS: CLOPIDOGREL BISULFATE 75 MG TABLET PO SCH (09:05)
[2022-06-18] MEDS: GABAPENTIN 100 MG CAPSULE PO SCH ×3 (09:05→21:02)
[2022-06-18] MEDS: ETHYL ALCOHOL 62% ANTISEPTIC NASAL SANITIZER 0.6 ML AMPUL NASAL SCH ×2 (09:05→21:03)
[2022-06-18] MEDS: DOCUSATE SODIUM 250 MG CAPSULE PO SCH ×2 (09:05→21:03)
[2022-06-18] MEDS: ASPIRIN 81 MG CHEWABLE TABLET PO SCH (09:06)
[2022-06-18] MEDS: MULTIVITAMINS WITH MINERALS, THERAPEUTIC TABLET PO SCH (09:06)
[2022-06-18] MEDS: HEPARIN SODIUM,PORCINE 5,000 UNITS/ML VIAL SQ SCH ×2 (09:06→21:00)
[2022-06-18] MEDS: AmLODIPine BESYLATE 5 MG TABLET PO SCH (09:06)
[2022-06-18] MEDS: VALSARTAN 160 MG TABLET PO SCH (09:06)
[2022-06-18 10:00] VITALS: BP 129/69
[2022-06-18 17:41] LABS: GLUCOMETER DEV NAME(LOC) 2WR.2B; GLUCOSE,POINT OF CARE 122 MG/DL (70-110)
[2022-06-18 20:05] VITALS: BP 123/69
[2022-06-18] MEDS: TraZODone HCL 50 MG TABLET PO PRN (21:02)
[2022-06-18] MEDS: ATORVASTATIN CALCIUM 40 MG TABLET PO SCH (21:03)
[2022-06-19] MEDS: PANTOPRAZOLE SODIUM 40 MG DR TABLET PO SCH ×2 (06:27→16:06)
[2022-06-19 06:46] LABS: GLUCOMETER DEV NAME(LOC) 2WR.2B; GLUCOSE,POINT OF CARE 94 MG/DL (70-110)
[2022-06-19 08:02] VITALS: BP 128/82
[2022-06-19] MEDS: ETHYL ALCOHOL 62% ANTISEPTIC NASAL SANITIZER 0.6 ML AMPUL NASAL SCH ×2 (08:29→21:09)
[2022-06-19] MEDS: HEPARIN SODIUM,PORCINE 5,000 UNITS/ML VIAL SQ SCH ×2 (08:30→21:09)
[2022-06-19] MEDS: DOCUSATE SODIUM 250 MG CAPSULE PO SCH ×2 (08:30→21:08)
[2022-06-19] MEDS: ASPIRIN 81 MG CHEWABLE TABLET PO SCH (08:30)
[2022-06-19] MEDS: CLOPIDOGREL BISULFATE 75 MG TABLET PO SCH (08:30)
[2022-06-19] MEDS: AmLODIPine BESYLATE 5 MG TABLET PO SCH (08:30)
[2022-06-19] MEDS: MULTIVITAMINS WITH MINERALS, THERAPEUTIC TABLET PO SCH (08:31)
[2022-06-19] MEDS: VALSARTAN 160 MG TABLET PO SCH (08:31)
[2022-06-19] MEDS: GABAPENTIN 100 MG CAPSULE PO SCH ×3 (08:31→21:08)
[2022-06-19 20:05] VITALS: BP 142/83
[2022-06-19] MEDS: TraZODone HCL 50 MG TABLET PO PRN (21:08)
[2022-06-19] MEDS: ATORVASTATIN CALCIUM 40 MG TABLET PO SCH (21:08)
[2022-06-19 21:57] LABS: GLUCOMETER DEV NAME(LOC) 2WR.1C; GLUCOSE,POINT OF CARE 93 MG/DL (70-110)
[2022-06-20] MEDS: PANTOPRAZOLE SODIUM 40 MG DR TABLET PO SCH ×2 (06:32→16:19)
[2022-06-20 07:42] LABS: GLUCOMETER DEV NAME(LOC) 2WR.2B; GLUCOSE,POINT OF CARE 115 MG/DL (70-110)
[2022-06-20] MEDS: DOCUSATE SODIUM 250 MG CAPSULE PO SCH ×2 (08:38→20:52)
[2022-06-20] MEDS: MULTIVITAMINS WITH MINERALS, THERAPEUTIC TABLET PO SCH (08:38)
[2022-06-20] MEDS: VALSARTAN 160 MG TABLET PO SCH (08:38)
[2022-06-20] MEDS: ASPIRIN 81 MG CHEWABLE TABLET PO SCH (08:38)
[2022-06-20] MEDS: CLOPIDOGREL BISULFATE 75 MG TABLET PO SCH (08:38)
[2022-06-20] MEDS: GABAPENTIN 100 MG CAPSULE PO SCH ×3 (08:38→20:52)
[2022-06-20] MEDS: ETHYL ALCOHOL 62% ANTISEPTIC NASAL SANITIZER 0.6 ML AMPUL NASAL SCH ×2 (08:38→20:52)
[2022-06-20] MEDS: AmLODIPine BESYLATE 5 MG TABLET PO SCH (08:38)
[2022-06-20] MEDS: HEPARIN SODIUM,PORCINE 5,000 UNITS/ML VIAL SQ SCH ×2 (08:39→20:53)
[2022-06-20] MEDS: LACTULOSE 20 GM/30 ML SOLUTION UDCUP PO PRN (09:31)
[2022-06-20 10:36] VITALS: BP 129/58
[2022-06-20 18:08] LABS: GLUCOMETER DEV NAME(LOC) 2WR.1C; GLUCOSE,POINT OF CARE 124 MG/DL (70-110)
[2022-06-20 20:45] VITALS: BP 136/62
[2022-06-20] MEDS: ATORVASTATIN CALCIUM 40 MG TABLET PO SCH (20:52)
[2022-06-20] MEDS: TraZODone HCL 50 MG TABLET PO PRN (20:53)
[2022-06-20] MEDS: SENNOSIDES 8.6 MG TABLET PO PRN (20:54)
[2022-06-21] MEDS: PANTOPRAZOLE SODIUM 40 MG DR TABLET PO SCH ×2 (06:21→16:36)
[2022-06-21] MEDS ORDERED: TRAZ-252 PO (07:14)
[2022-06-21 07:18] LABS: GLUCOMETER DEV NAME(LOC) 2WR.2B; GLUCOSE,POINT OF CARE 94 MG/DL (70-110)
[2022-06-21 08:05] VITALS: BP 135/67
[2022-06-21] MEDS: ETHYL ALCOHOL 62% ANTISEPTIC NASAL SANITIZER 0.6 ML AMPUL NASAL SCH ×2 (08:34→20:23)
[2022-06-21] MEDS: GABAPENTIN 100 MG CAPSULE PO SCH ×3 (08:35→20:24)
[2022-06-21] MEDS: HEPARIN SODIUM,PORCINE 5,000 UNITS/ML VIAL SQ SCH ×2 (08:35→20:24)
[2022-06-21] MEDS: CLOPIDOGREL BISULFATE 75 MG TABLET PO SCH (08:35)
[2022-06-21] MEDS: ASPIRIN 81 MG CHEWABLE TABLET PO SCH (08:35)
[2022-06-21] MEDS: VALSARTAN 160 MG TABLET PO SCH (08:35)
[2022-06-21] MEDS: MULTIVITAMINS WITH MINERALS, THERAPEUTIC TABLET PO SCH (08:35)
[2022-06-21] MEDS: AmLODIPine BESYLATE 5 MG TABLET PO SCH (08:35)
[2022-06-21] MEDS: DOCUSATE SODIUM 250 MG CAPSULE PO SCH ×2 (08:35→20:23)
[2022-06-21 17:27] LABS: GLUCOMETER DEV NAME(LOC) 2WR.2B; GLUCOSE,POINT OF CARE 106 MG/DL (70-110)
[2022-06-21] MEDS: ATORVASTATIN CALCIUM 40 MG TABLET PO SCH (20:23)
[2022-06-21] MEDS: TraZODone HCL 50 MG TABLET PO PRN (20:25)
[2022-06-21 20:47] VITALS: BP 130/74
[2022-06-22] MEDS: PANTOPRAZOLE SODIUM 40 MG DR TABLET PO SCH ×2 (06:22→16:04)
[2022-06-22 06:58] LABS: GLUCOMETER DEV NAME(LOC) 2WR.1C; GLUCOSE,POINT OF CARE 97 MG/DL (70-110)
[2022-06-22 08:15] VITALS: BP 128/72
[2022-06-22] MEDS: AmLODIPine BESYLATE 5 MG TABLET PO SCH (08:38)
[2022-06-22] MEDS: CLOPIDOGREL BISULFATE 75 MG TABLET PO SCH (08:38)
[2022-06-22] MEDS: MULTIVITAMINS WITH MINERALS, THERAPEUTIC TABLET PO SCH (08:38)
[2022-06-22] MEDS: ETHYL ALCOHOL 62% ANTISEPTIC NASAL SANITIZER 0.6 ML AMPUL NASAL SCH ×2 (08:38→21:47)
[2022-06-22] MEDS: DOCUSATE SODIUM 250 MG CAPSULE PO SCH ×2 (08:38→21:47)
[2022-06-22] MEDS: VALSARTAN 160 MG TABLET PO SCH (08:39)
[2022-06-22] MEDS: GABAPENTIN 100 MG CAPSULE PO SCH ×3 (08:39→21:52)
[2022-06-22] MEDS: HEPARIN SODIUM,PORCINE 5,000 UNITS/ML VIAL SQ SCH ×2 (08:39→21:47)
[2022-06-22] MEDS: ASPIRIN 81 MG CHEWABLE TABLET PO SCH (08:40)
[2022-06-22] MEDS ORDERED: VALS160T2 PO (10:59)
[2022-06-22] MEDS ORDERED: ASPI81 PO (10:59)
[2022-06-22] MEDS ORDERED: PANT-31 PO (10:59)
[2022-06-22] MEDS ORDERED: MULT-1239 PO (10:59)
[2022-06-22] MEDS ORDERED: AMLO-257 PO (10:59)
[2022-06-22] MEDS ORDERED: ATOR40TA71 PO (10:59)
[2022-06-22] MEDS ORDERED: DOCU-350 PO (10:59)
[2022-06-22] MEDS ORDERED: CLOP75TA60 PO (10:59)
[2022-06-22] MEDS ORDERED: TRAZ-252 PO (10:59)
[2022-06-22] MEDS ORDERED: GABA-1216 PO (10:59)
[2022-06-22 18:07] LABS: GLUCOMETER DEV NAME(LOC) 2WR.1C; GLUCOSE,POINT OF CARE 107 MG/DL (70-110)
[2022-06-22 20:12] VITALS: BP 142/73
[2022-06-22] MEDS: ATORVASTATIN CALCIUM 40 MG TABLET PO SCH (21:47)
[2022-06-22] MEDS: TraZODone HCL 50 MG TABLET PO PRN (21:48)
[2022-06-22] MEDS: SENNOSIDES 8.6 MG TABLET PO PRN (21:48)
[2022-06-23 05:18] LABS: GLUCOMETER DEV NAME(LOC) 2WR.1C; GLUCOSE,POINT OF CARE 121 MG/DL (70-110)
[2022-06-23] MEDS: PANTOPRAZOLE SODIUM 40 MG DR TABLET PO SCH (06:55)
[2022-06-23 08:05] VITALS: BP 138/67
[2022-06-23] MEDS: ETHYL ALCOHOL 62% ANTISEPTIC NASAL SANITIZER 0.6 ML AMPUL NASAL SCH (08:34)
[2022-06-23] MEDS: VALSARTAN 160 MG TABLET PO SCH (08:34)
[2022-06-23] MEDS: ASPIRIN 81 MG CHEWABLE TABLET PO SCH (08:34)
[2022-06-23] MEDS: DOCUSATE SODIUM 250 MG CAPSULE PO SCH (08:34)
[2022-06-23] MEDS: MULTIVITAMINS WITH MINERALS, THERAPEUTIC TABLET PO SCH (08:35)
[2022-06-23] MEDS: CLOPIDOGREL BISULFATE 75 MG TABLET PO SCH (08:35)
[2022-06-23] MEDS: GABAPENTIN 100 MG CAPSULE PO SCH (08:35)
[2022-06-23] MEDS: AmLODIPine BESYLATE 5 MG TABLET PO SCH (08:35)
[2022-06-23] MEDS: HEPARIN SODIUM,PORCINE 5,000 UNITS/ML VIAL SQ SCH (08:36)
[2022-06-23 12:58] LABS: GLUCOMETER DEV NAME(LOC) 2WR.1C; GLUCOSE,POINT OF CARE 92 MG/DL (70-110)
== END 2022-06-23 12:05 | disposition home health service (06) | DRG 65 ==
LOC: 2WR 20:22
PROVIDERS: ADMIT Physical Medicine & Rehabilitation; ATTEND Physical Medicine & Rehabilitation
DX: I63.211 Cerebral infarction due to unspecified occlusion or stenosis of right vertebral artery (principal); E44.0 Moderate protein-calorie malnutrition; N17.9 Acute kidney failure, unspecified; I69.354 Hemiplegia and hemiparesis following cerebral infarction affecting left non-dominant side; D72.829 Elevated white blood cell count, unspecified; E11.22 Type 2 diabetes mellitus with diabetic chronic kidney disease; E11.40 Type 2 diabetes mellitus with diabetic neuropathy, unspecified; E11.51 Type 2 diabetes mellitus with diabetic peripheral angiopathy without gangrene; E78.00 Pure hypercholesterolemia, unspecified; F32.A Depression, unspecified; G47.00 Insomnia, unspecified; F41.9 Anxiety disorder, unspecified; K59.00 Constipation, unspecified; M19.90 Unspecified osteoarthritis, unspecified site; E66.01 Morbid (severe) obesity due to excess calories; R41.89 Other symptoms and signs involving cognitive functions and awareness; R47.1 Dysarthria and anarthria; R13.10 Dysphagia, unspecified; R11.0 Nausea; R31.29 Other microscopic hematuria; R31.9 Hematuria, unspecified; N18.30 Chronic kidney disease, stage 3 unspecified; Z89.429 Acquired absence of other toe(s), unspecified side; Z79.899 Other long term (current) drug therapy; Z79.4 Long term (current) use of insulin; Z79.84 Long term (current) use of oral hypoglycemic drugs; Z83.3 Family history of diabetes mellitus; Z68.38 Body mass index [BMI] 38.0-38.9, adult; Z79.82 Long term (current) use of aspirin; I12.9 Hypertensive chronic kidney disease with stage 1 through stage 4 chronic kidney disease, or unspecified chronic kidney disease
CPT/HCPCS: 74176; 76770; 80048; 80053; 80061; 81001; 82570; 82962; 83036; 83735; 84100; 84156; 84300; 84540; 85025; 86038; 86060; 86160; 86256; 87081; 90686; 90732; 92507; 92508; 92523; 92526; 93970; 97032; 97110; 97112; 97116; 97150; 97163; 97167; 97530; 97535; 99366; J1644; J1650